=== PATIENT | female | born 1955 | race African-American/Black ===

== ENCOUNTER 2016-03-09 23:35 | Emergency (ER) | payer MEDICARE ==
[~2016-03-09] VITALS: Ht 157.5 cm; Wt 71.0 kg
[~2016-03-09 23:35] MED LIST: CO-QCAP PO; DEXA4TAB IV; MACR100C PO; METO50TA PO; NITR.4 SL; PLAV75TA PO; PRIL20CA PO; VITA20002 PO; VITA250T5 PO; VITA80005 PO; ZOCO40TA PO; ZOFR4TAB3 PO; ZOVI400T15 PO; [UNRECOGNIZED DRUG - CODE] IV; [UNRECOGNIZED DRUG - CODE] PO
[2016-03-10] MEDS ORDERED: SODIUM CHLORIDE 0.9% FLUSH 5 ML FLUSH IVF PRN (00:30)
[2016-03-10] MEDS ORDERED: MORPHINE SULFATE 4 MG/ML INJ IV PUSH ONE (00:30)
--- NOTE | 2016-03-10 00:38 | PD ---
HPI Chief Complaint: Abdominal Pain Time Seen by Provider: 00:23 Travel History International Travel<30 days: No (unknown ) Contact w/Intl Traveler<30days: No (unknown) History of Present Illness HPI 61yo F with PMH of multiple myeloma, amyloidosis, kidney failure not currently on hemodialysis presents to the ED with c/o lower abdominal pain that started at 8:30pm today. Started in left groin and radiates to periumbilical region. + Dysuria. Denies any fever, chest pain, sob, n/v, vaginal bleeding or discharge. PSH include appendectomy, umbilical hernia repair and . PFSH Past Medical History Heart Rhythm Problems: Yes Cancer: Yes (MULTIPLE MYELOMA) Cardiac Catheterization: No Cardiovascular Problems: Yes High Cholesterol: Yes Chemotherapy: Yes (ORAL) Chest Pain: No Congestive Heart Failure: Yes Diabetes: No Diminished Hearing: No Endocrine: No Genitourinary: No Hypertension: Yes Immune Disorder: No Implanted Vascular Access Dvce: Yes (INFUSAPORT AT RIGHT UPPER CHEST, FISTULA AT LEFT FOREARM) Musculoskeletal: No Neurologic: No Reproductive: No Respiratory: No Immunizations Current: No Renal Failure: Yes Sickle Cell Disease: No Menopausal: Yes : 4 Para: 4 Tubal Ligation: Yes Past Surgical History Abdominal Surgery: Yes (HERNIA REPAIR) Appendectomy: Yes Section: Yes (x4) Coronary Artery Bypass Graft: No Gynecologic Surgery: Yes ( TIMES 4) Pacemaker: No Other Surgery: Yes Social History Alcohol Use: No Tobacco Use: No Substance Use: No Allergies-Medications (Allergen,Severity, Reaction): Coded Allergies: Aspirin (Verified Allergy, Severe, 01/04/15) Hyzaar (Verified Allergy, Severe, Hives, 01/04/15) Lisinopril (Verified Allergy, Severe, Cough, 01/04/15) Penicillin (Verified Allergy, Severe, 01/04/15) Uncoded Allergies: CHLORAPREP (Allergy, Severe, Rash, 03/30/13) Reported Meds & Prescriptions Reported Meds & Active Scripts Active Acetaminophen Extra Strength (Acetaminophen) 500 Mg Cap 500 Mg PO Q6H PRN Reported [revlimid] 5 Mg PO EVERY OTHER DAY Restasis Opth Drops (Cyclosporine Opth Drops) 0.05% Emul 1 Drop EACH EYE BID Omeprazole 20 Mg Tab 20 Mg PO DAILY Zocor (Simvastatin) 10 Mg Tab 10 Mg PO DAILY Metoprolol Tartrate 50 Mg Tab 50 Mg PO BID Plavix (Clopidogrel Bisulfate) 75 Mg Tab 75 Mg PO DAILY Zovirax (Acyclovir) 400 Mg Tab 400 Mg PO DAILY Review of Systems Except as stated in HPI: all other systems reviewed are Neg Physical Exam Narrative GENERAL: 61yo F not in distress. SKIN: Warm and dry. HEAD: Atraumatic. Normocephalic. EYES: Pupils equal and round. No scleral icterus. No injection or drainage. ENT: No nasal bleeding or discharge. Mucous membranes pink and moist. NECK: Trachea midline. No JVD. CARDIOVASCULAR: Regular rate and rhythm. No murmur appreciated. RESPIRATORY: No accessory muscle use. Clear to auscultation. Breath sounds equal bilaterally. GASTROINTESTINAL: Abdomen soft, +Firm mass in left inguinal region, ttp. Not erythematous or fluctuant. +TTP LLQ and periumbilical region. MUSCULOSKELETAL: No obvious deformities. No clubbing. No cyanosis. No edema. NEUROLOGICAL: Awake and alert. No obvious cranial nerve deficits. Motor grossly within normal limits. Normal speech. PSYCHIATRIC: Appropriate mood and affect; insight and judgment normal. Data Data Last Documented VS Vital Signs Date Time Temp Pulse Resp B/P Pulse Ox O2 Delivery O2 Flow Rate FiO2 03/10/16 03:38 62 18 98 03/10/16 03:37 154/72 Room Air 03/10/16 01:02 97.6 Orders Complete Blood Count With Diff (03/10/16 00:25) Comprehensive Metabolic Panel (03/10/16 00:25) Lipase (03/10/16 00:25) Lactic Acid (03/10/16 00:25) Prothrombin Time / Inr (Pt) (03/10/16 00:25) Act Partial Throm Time (Ptt) (03/10/16 00:25) Ct Abd/Pel W/O Iv Contrast (03/10/16 00:25) Iv Access Insert/Monitor (03/10/16 00:25) Ecg Monitoring (03/10/16 00:25) Oximetry (03/10/16 00:25) Morphine Inj (Morphine Inj) (03/10/16 00:30) Sodium Chloride 0.9% Flush (Ns Flush) (03/10/16 00:30) Labs Laboratory Tests Test 03/10/16 00:40 White Blood Count 6.9 TH/MM3 Red Blood Count 4.28 MIL/MM3 Hemoglobin 12.7 GM/DL Hematocrit 38.8 % Mean Corpuscular Volume 90.7 FL Mean Corpuscular Hemoglobin 29.8 PG Mean Corpuscular Hemoglobin 32.8 % Concent Red Cell Distribution Width 15.2 % Platelet Count 194 TH/MM3 Mean Platelet Volume 8.4 FL Neutrophils (%) (Auto) 84.5 % Lymphocytes (%) (Auto) 8.0 % Monocytes (%) (Auto) 6.3 % Eosinophils (%) (Auto) 0.1 % Basophils (%) (Auto) 1.1 % Neutrophils # (Auto) 5.8 TH/MM3 Lymphocytes # (Auto) 0.6 TH/MM3 Monocytes # (Auto) 0.4 TH/MM3 Eosinophils # (Auto) 0.0 TH/MM3 Basophils # (Auto) 0.1 TH/MM3 CBC Comment DIFF FINAL Differential Comment Prothrombin Time 11.2 SEC Prothromb Time International 1.0 RATIO Ratio Activated Partial 28.0 SEC Thromboplast Time Sodium Level 140 MEQ/L Potassium Level 4.2 MEQ/L Chloride Level 105 MEQ/L Carbon Dioxide Level 24.8 MEQ/L Anion Gap 10 MEQ/L Blood Urea Nitrogen 30 MG/DL Creatinine 1.70 MG/DL Estimat Glomerular Filtration 37 ML/MIN Rate Random Glucose 110 MG/DL Lactic Acid Level 0.7 mmol/L Calcium Level 8.5 MG/DL Total Bilirubin 0.4 MG/DL Aspartate Amino Transf 24 U/L (AST/SGOT) Alanine Aminotransferase 25 U/L (ALT/SGPT) Alkaline Phosphatase 70 U/L Total Protein 6.1 GM/DL Albumin 3.0 GM/DL Lipase 178 U/L [facility] Medical Decision Making Medical Screen Exam Complete: Yes Emergency Medical Condition: Yes Interpretation(s) Laboratory Tests Test 03/10/16 00:40 White Blood Count 6.9 TH/MM3 (4.0-11.0) Red Blood Count 4.28 MIL/MM3 (4.00-5.30) Hemoglobin 12.7 GM/DL (11.6-15.3) Hematocrit 38.8 % (35.0-46.0) Mean Corpuscular Volume 90.7 FL (80.0-100.0) Mean Corpuscular Hemoglobin 29.8 PG (27.0-34.0) Mean Corpuscular Hemoglobin 32.8 % Concent (32.0-36.0) Red Cell Distribution Width 15.2 % (11.6-17.2) Platelet Count 194 TH/MM3 (150-450) Mean Platelet Volume 8.4 FL (7.0-11.0) Neutrophils (%) (Auto) 84.5 % (16.0-70.0) Lymphocytes (%) (Auto) 8.0 % (9.0-44.0) Monocytes (%) (Auto) 6.3 % (0.0-8.0) Eosinophils (%) (Auto) 0.1 % (0.0-4.0) Basophils (%) (Auto) 1.1 % (0.0-2.0) Neutrophils # (Auto) 5.8 TH/MM3 (1.8-7.7) Lymphocytes # (Auto) 0.6 TH/MM3 (1.0-4.8) Monocytes # (Auto) 0.4 TH/MM3 (0-0.9) Eosinophils # (Auto) 0.0 TH/MM3 (0-0.4) Basophils # (Auto) 0.1 TH/MM3 (0-0.2) CBC Comment DIFF FINAL Differential Comment Prothrombin Time 11.2 SEC (9.8-11.6) Prothromb Time International 1.0 RATIO Ratio Activated Partial 28.0 SEC Thromboplast Time (24.3-30.1) Sodium Level 140 MEQ/L (136-145) Potassium Level 4.2 MEQ/L (3.5-5.1) Chloride Level 105 MEQ/L (98-107) Carbon Dioxide Level 24.8 MEQ/L (21.0-32.0) Anion Gap 10 MEQ/L (5-15) Blood Urea Nitrogen 30 MG/DL (7-18) Creatinine 1.70 MG/DL (0.50-1.00) Estimat Glomerular Filtration 37 ML/MIN (>89) Rate Random Glucose 110 MG/DL (74-106) Lactic Acid Level 0.7 mmol/L (0.4-2.0) Calcium Level 8.5 MG/DL (8.5-10.1) Total Bilirubin 0.4 MG/DL (0.2-1.0) Aspartate Amino Transf 24 U/L (15-37) (AST/SGOT) Alanine Aminotransferase 25 U/L (10-53) (ALT/SGPT) Alkaline Phosphatase 70 U/L (45-117) Total Protein 6.1 GM/DL (6.4-8.2) Albumin 3.0 GM/DL (3.4-5.0) Lipase 178 U/L (73-393) Last Impressions Abdomen/Pelvis CT 03/10/16 0025 Signed Impressions: Service Date/Time: February 00:45 - CONCLUSION: 1. Mildly dilated small bowel loops seen just proximal to left inguinal hernia containing a small segment of small bowel. 2. Small fat containing ventral wall hernias. 3. No renal calculi hydronephrosis. Miguel Angel Monet MD Differential Diagnosis Inguinal hernia vs. abscess vs. colitis Narrative Course 61yo F with sudden onset left groin pain that radiates to left lower abdomen at 8:30pm tonight. Pt denies any vomiting and is having bowel movement and flatus. On exam there was initially a firm mass in the left groin. Pt given morphine 4mg IV. Labs reviewed, no leukocytosis. Lactic acid 0.7. BUN/ creatinine elevated at 30/1.70. CTa/p showed mildly dilated small bowel loops just proximal to left inguinal hernia containing a small segment of small bowel. Pt reevaluated at bedside and the firm mass in left groin is no longer there. It seemed that the inguinal hernia reduced on its own. Abdominal pain has also improved. Pt is not vomiting and is having bowel movement and flatus. She is well appearing. Discussed with general surgeon Dr. Boubacar Hilton who reviewed the CT scan himself and he recommended that she follow up with him in his office today. Patient agrees with plan. Return precautions given. Diagnosis Primary Impression: Inguinal hernia Qualified Code: K40.90 - Non-recurrent unilateral inguinal hernia without obstruction or gangrene Referrals: Boubacar Hilton MD 1 day inguinal hernia Patient Instructions: General Instructions Departure Forms: Tests/Procedures Additional Instructions: Please call Dr. Boubacar Hilton's office this morning for appointment to see him today. Return to the ED immediately if you have worsening symptoms. Med/Other Pt SpecificInfo: Prescription(s) given Scripts Acetaminophen (Acetaminophen Extra Strength)500 Mg Pwr713 Mg PO Q6H PRN #20 CAP Ref 0 Prov:Mesha Disla DO 03/10/16 Disposition: 01 DISCHARGE HOME Condition: Stable Mesha Disla DO Mar 10, 2016 00:38
[2016-03-10 00:55] LABS: AUTOMATED NEUTROPHIL # 5.8 TH/MM3 (1.8-7.7); BASOPHIL # 0.1 TH/MM3 (0-0.2); BASOPHIL % 1.1 % (0.0-2.0); EOSINOPHIL % 0.1 % (0.0-4.0); HEMATOCRIT 38.8 % (35.0-46.0); HEMO FLAGS DIFF FINAL; LYMPHOCYTE # 0.6 TH/MM3 (1.0-4.8); MEAN CELL VOLUME 90.7 FL (80.0-100.0); MEAN CORPUSCULAR HEMOGLOBIN 29.8 PG (27.0-34.0); MEAN CORPUSCULAR HGB CONC 32.8 % (32.0-36.0); MONO % 6.3 % (0.0-8.0); NEUT % 84.5 % (16.0-70.0); PLATELET COUNT 194 TH/MM3 (150-450); RED BLOOD COUNT 4.28 MIL/MM3 (4.00-5.30); RED CELL DISTRIBUTION WIDTH 15.2 % (11.6-17.2); WHITE BLOOD COUNT 6.9 TH/MM3 (4.0-11.0)
[2016-03-10 01:00] LABS: CHLORIDE 105 MEQ/L (98-107); POTASSIUM 4.2 MEQ/L (3.5-5.1); SODIUM (NA) 140 MEQ/L (136-145)
[2016-03-10 01:02] VITALS: BP 156/70; PULSE 60; RESP 18; TEMP 97.6; O2SAT 100
[2016-03-10 01:04] LABS: ANION GAP 10 MEQ/L (5-15); BICARBONATE 24.8 MEQ/L (21.0-32.0); BLOOD UREA NITROGEN 30 MG/DL (7-18)
[2016-03-10 01:05] VITALS: RESP 18; O2SAT 100
[2016-03-10 01:06] LABS: PROTHROMBIN TIME - PATIENT 11.2 SEC (9.8-11.6)
[2016-03-10 01:07] LABS: ALT (GPT) 25 U/L (10-53); AST (GOT) 24 U/L (15-37); GLOMERULAR FILTRATION RATE 37 ML/MIN (>89)
[2016-03-10 01:08] LABS: TOTAL BILIRUBIN ADULT 0.4 MG/DL (0.2-1.0)
[2016-03-10 01:10] LABS: ALKALINE PHOSPHATASE 70 U/L (45-117)
[2016-03-10] MEDS ORDERED: METO50TA PO (02:01)
[2016-03-10] MEDS ORDERED: revlimid PO (02:01)
[2016-03-10] MEDS ORDERED: ZOVI400T PO (02:01)
[2016-03-10] MEDS ORDERED: REST0.05 EACH EYE (02:01)
[2016-03-10] MEDS ORDERED: ZOCO10TA PO (02:01)
[2016-03-10] MEDS ORDERED: PLAV75TA29 PO (02:01)
[2016-03-10] MEDS ORDERED: OMEP20TA PO (02:01)
--- NOTE | 2016-03-10 02:03 | RADHPO ---
EXAM DATE/TIME: 03/10/2016 00:45 [place] COMPARISON: No previous studies available for comparison. INDICATIONS : Lower abdominal pain today. ORAL CONTRAST: No oral contrast ingested. RADIATION DOSE: 16.20 CTDIvol (mGy) MEDICAL HISTORY : Renal failure, chronic. Multiple myeloma SURGICAL HISTORY : section. Tubal ligation. ENCOUNTER: Initial ACUITY: 1 day PAIN SCALE: 8/10 LOCATION: Bilateral lower quadrant abdomen TECHNIQUE: Volumetric scanning of the abdomen and pelvis was performed. Using automated exposure control and ad justment of the mA and/or kV according to patient size, radiation dose was kept as low as reasonably achievable to obtain optimal diagnostic quality images. FINDINGS: LOWER LUNGS: Right basilar atelectasis. LIVER: Homogeneous density without lesion. There is no dilation of the biliary tree. No calcified gallston es. SPLEEN: Normal size without lesion. PANCREAS: Within normal limits. KIDNEYS: Normal in size and shape. There is no mass, stone, or hydronephrosis. ADRENAL GLANDS: Within normal limits. VASCULAR: There is no aortic aneurysm. BOWEL/MESENTERY: Mildly dilated small bowel loops in the lower left abdomen. This is seen proximal to the left inguina l hernia containing a small loop of small bowel. There is no free intraperitoneal air or fluid. ABDOMINAL WALL: Sac containing ventral wall hernias. RETROPERITONEUM: There is no lymphadenopathy. BLADDER: No wall thickening or mass. REPRODUCTIVE: Within normal limits. INGUINAL: There is no lymphadenopathy or hernia. MUSCULOSKELETAL: Within normal limits for patient age. CONCLUSION: 1. Mildly dilated small bowel loops seen just proximal to left inguinal hernia containing a small seg ment of small bowel. 2. Small fat containing ventral wall hernias. 3. No renal calculi hydronephrosis. Miguel Angel Monet MD on March 10, 2016 at 1:58 Board Certified Radiologist. This report was verified electronically.
[2016-03-10 02:36] VITALS: BP 150/72; PULSE 60; RESP 18; O2SAT 98
[2016-03-10] MEDS ORDERED: EXTR500C PO (03:21)
[2016-03-10 03:37] VITALS: BP 154/72; PULSE 62; RESP 18; O2SAT 98
== END 2016-03-10 03:39 | disposition home or self-care (01) ==
LOC: PHED 23:35
DX: K40.90 Unilateral inguinal hernia, without obstruction or gangrene, not specified as recurrent (principal)
CPT/HCPCS: 74176; 80053; 83605; 83690; 85025; 85610; 85730; 96374; 99284; J2270

== ENCOUNTER → 2016-05-13 | Day surgery (SDC) | payer MEDICARE ==
[~2016-05-13] MED LIST changes: +ACETAMINOPHEN 1000 MG/100 ML VIAL IV ONE; +BUPIVACAINE/EPINEPHRINE 0.25% 50 ML VIAL ONE; -CO-QCAP PO; -DEXA4TAB IV; +EXTR500C PO; +LACTATED RINGER'S 1000 ML INJ 1,000 ML ONE; +LIDOCAINE 1%/EPINEPHrine 1:100,000 SOLN 20 ML VIAL ONE; -MACR100C PO; +MIDAZOLAM HCL 2 MG/2 ML VIAL ONE; -NITR.4 SL; +OMEP20TA PO; +ONDANSETRON HCL 4 MG/2 ML VIAL IV PUSH ONE; -PLAV75TA PO; +PLAV75TA29 PO; -PRIL20CA PO; +PROPOFOL 200 MG/20 ML AMP IV ONE; +REST0.05 EACH EYE; +VANCOMYCIN HCL 1000 MG VIAL ONE; -VITA20002 PO; -VITA250T5 PO; -VITA80005 PO; +ZOCO10TA PO; -ZOCO40TA PO; -ZOFR4TAB3 PO; +ZOVI400T PO; -ZOVI400T15 PO; -[UNRECOGNIZED DRUG - CODE] IV; -[UNRECOGNIZED DRUG - CODE] PO; +revlimid PO
--- NOTE | 2016-05-15 12:17 | MP ---
cc: FELY SPICER M.D. DATE OF SURGERY: 05/13/2016 PROCEDURE: Left inguinal hernia with mesh. PREOPERATIVE DIAGNOSIS: Symptomatic left inguinal hernia, reducible. POSTOPERATIVE DIAGNOSIS: Symptomatic left inguinal hernia, reducible. ANESTHESIA: LMA. SURGEON Mckenzie Spicer MD. SPRAY OPERATOR: PAULA Bermudez COMPLICATIONS None. DRAINS: None. SPECIMEN None ESTIMATED BLOOD LOSS: Less than 10 mL FLUIDS: 850 mL Crystalloid PROCEDURE IN DETAIL: The patient was seen in the holding area and the left groin marked by the undersigned and confirmed by the patient. She was taken to the operating room and placed on the operating room table in the supine position. After an adequate level of laryngeal mask anesthesia was instituted, the left groin was shaved, prepped and draped. Time-out was taken confirming the correct patient, site, and procedure to be performed. Laura Segura, the MOBILITY SCOOTER REPAIRER, was present for the entire procedure. Her presence was necessary to assist with exposure, tissue retraction and completion of the procedure with placement of the mesh. The skin and subcutaneous tissue was infiltrated with local anesthetic and a slightly oblique incision made in the left groin. This was carried down through the external oblique fascia where further subfascial injections were made with local anesthetic. The fascia was opened sharply with a 15 blade and then the incision extended toward the groin and laterally with the Metzenbaum scissors. The fascia was elevated from the underlying subcutaneous tissue. The iliohypogastric nerve was identified and kept intact within the sheath. The hernia was noted and was composed entirely of fat. This was dissected from the surrounding tissues and inverted into the abdominal cavity. Care was taken to preserve the genital branch of the genital femoral nerve. At this point two 2-0 Prolene sutures were used to preliminarily close the defect to keep the fatty material within the abdominal cavity. At this point a 3 x 6 inch piece of atrium mesh was brought up and placed into the defect. The mesh was transfixed to the pubic tubercle with 2-0 Prolene suture which was then run along the shelving edge of the inguinal ligament to complete the lateral edge of the repair. The mesh was slit longitudinally to allow for egress of the genital nerve and the soft tissues. The mesh was then transfixed at multiple points with 2-0 Prolene suture. Care was taken to place no sutures near the iliohypogastric nerve. The medial leaf of the mesh was then transposed over the lateral leaf and secured with four 2-0 Prolene sutures. This closed down the defect and secured the mesh to the lateral leaf of mesh. When this was completed, 30 mL of 0.25% Marcaine with epinephrine was injected into the transversalis fascia and subcutaneous tissues. With hemostasis assured, the external oblique fascia was reclosed with running 3-0 Vicryl suture. Care was taken to exclude the underlying tissues from the closure; care was taken to avoid including the iliohypogastric nerve and the closure. When this was completed, the wound was closed with interrupted 3-0 Vicryl suture and the skin closed with 5-0 PDS in a running subcuticular fashion. The wound was dressed with Telfa and Tegaderm. The patient was taken back to the recovery room in stable condition. She tolerated procedure well. MD SERJIO Orellana/TANYA /11:11 AM /12:10 PM
== END | disposition home or self-care (01) ==
LOC: ESDC 06:59
PROVIDERS: ATTEND Surgery Trauma Surgery
DX: K40.90 Unilateral inguinal hernia, without obstruction or gangrene, not specified as recurrent (principal)
CPT/HCPCS: 00830; 49505; C1781; J0131; J2250; J2405; J3010; J3370; J7120